=== PATIENT | female | born 1950 | race Caucasian/White ===

== ENCOUNTER 2019-06-30 07:01 | Outpatient (CLI) | payer MEDICARE, OTHER, SELFPAY ==
--- NOTE | 2019-06-30 07:20 | ECG_ITS ---
NAME OF STUDY: LEXISCAN SESTAMIBI STRESS TEST INDICATION: Chest Pain NOTE: Please note that this is the electrocardiogram portion of the Lexiscan/Sestamibi stress test. The perfusion scan will be documented separately. DATA: Baseline heart rate was 55 beats per minute. Baseline blood pressure was 116/66 millimeters of mercury. Target heart rate was 154. Maximum heart rate achieved was 84. which was 54 % of the predicted target heart rate. Maximum blood pressure was 125/66 millimeters of mercury. The reason for ending the test was completion of the protocol. The patient did not experience any symptoms. ELECTROCARDIOGRAM: BASELINE: Sinus bradycardia. Normal axis. Old anterior wall myocardial infarction EXERCISE: After Lexiscan injection, no ST-T changes suggestive of ischemic noted. No arrhythmia noted. CONCLUSION: Please note due to baseline abnormality of the EKG specificity and sensitivity of the EKG portion of LexiScan MIBI stress test will be low 1. EKG not suggestive of ischemia 2. Lexiscan injection unremarkable. 3. Perfusion scan will be documented separately. Electronically Signed On 06-30-2019 18:42:54 DESKTOP ENGINEER by Karl Villalobos M.D. [email or web address]
[2019-06-30 07:28] VITALS: BMI 29.0
--- NOTE | 2019-06-30 07:43 | SUR.PREOP ---
Patient reports no pain or discomfort at this time. Pre procedure.
--- NOTE | 2019-06-30 09:30 | SUR.PREOP ---
Patient reports no pain or discomfort prior to the start of the procedure.
[2019-06-30] MEDS: regadenoson 0.4 Mg/5 ml Syringe IVP (09:32)
[2019-06-30 09:43] VITALS: BP 125/63; PULSE 69
== END 2019-06-30 07:02 | disposition home or self-care (01) ==
LOC: RAD 07:05
PROVIDERS: PCP Family Medicine; Visit Provider Family Medicine
DX: I25.2 Old myocardial infarction (principal); R07.9 Chest pain, unspecified; R00.1 Bradycardia, unspecified
CPT/HCPCS: 78452; 93017; A9500; J2785

== ENCOUNTER 2020-10-22 15:37 | Outpatient (CLI) | payer MEDICARE, OTHER, SELFPAY ==
--- NOTE | 2020-10-22 15:50 | XR_ITS ---
WS: [id number] Exam: XR tibia fibula RT 2V [id number] Date/Time of Exam: 10/22/2020 3:50 PM Reason For Exam: RIGHT LOWER LEG PAIN/INJURY In multiple views, no fractures, soft tissue swelling, or unusual calcifications are noted in or arou nd the tibia and fibula. There is normal bony alignment. No irregularity to the bony architecture i s noted. XR/XR tibia fibula RT 2V [id number] IMPRESSION: Negative tibia and fibula.
== END 2020-10-22 15:38 | disposition home or self-care (01) ==
LOC: RAD 15:44
PROVIDERS: PCP Family Medicine; Visit Provider Nurse Practitioner Family
DX: M79.661 Pain in right lower leg (principal); S89.90XA Unspecified injury of unspecified lower leg, initial encounter; X58.XXXA Exposure to other specified factors, initial encounter
CPT/HCPCS: 73590

== ENCOUNTER 2021-07-24 15:42 | Outpatient (CLI) | payer MEDICARE, OTHER, SELFPAY ==
--- NOTE | 2021-07-24 16:13 | XR_ITS ---
WS: [id number] CHEST 2 VIEWS HISTORY: POST covid 19 CONDITION COMPARISON: None available. Lungs: There are scattered areas of mild increased opacification bilaterally. Consistent with diagnos is of prior Covid. No dense area of consolidation or pneumothorax. Cardiac size: Normal. Mediastinum/Aorta: Mild atherosclerosis aorta. Bones: Thoracolumbar scoliosis. XR/XR chest 2V* [id number] IMPRESSION: 1. Scattered vague opacifications consistent with Covid pneumonitis. 2. No dense consolidation or pneumonia.
== END 2021-07-24 15:43 | disposition home or self-care (01) ==
PROVIDERS: PCP Nurse Practitioner; Visit Provider Nurse Practitioner
DX: U07.1 COVID-19 (principal)
CPT/HCPCS: 71046

== ENCOUNTER 2021-11-14 14:06 | Outpatient (CLI) | payer MEDICARE, OTHER, SELFPAY ==
--- NOTE | 2021-11-14 14:20 | XR_ITS ---
WS: [id number] Left knee, 2 views, 11/14/2021 Clinical Data: PAIN IN R KNEE Comparison: None. Findings: No fractures or dislocations are seen. The joint spaces are normal. The patella is intact. The soft t issues are unremarkable. 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 Kellgren-Mitchell Classification: grade 0 (none): definite absence of x-ray treva nges of osteoarthritis
--- NOTE | 2021-11-14 14:20 | XR_ITS ---
WS: [email or web address] Left foot, 3 views, 11/14/2021 Clinical Data: BILATERAL FOOT PAIN Comparison: None. Findings: No fractures or dislocations are seen. No bone destruction or erosion is noted. The joint spaces and soft tissues are normal. No periarticular demineralization or calcifications are seen. XR/XR foot LT min 3V* [id number] Impression: Negative left foot.
--- NOTE | 2021-11-14 14:20 | XR_ITS ---
WS: [id number] Right foot, 3 views, are described today Clinical Data: BILATERAL FOOT PAIN Comparison: None. Findings: No fractures or dislocations are seen. No bone destruction or erosion is noted. The joint spaces and soft tissues are normal. Periarticular demineralization or calcifications are seen. XR/XR foot RT min 3V* [id number] Impression: Negative right foot.
--- NOTE | 2021-11-14 14:32 | XR_ITS ---
WS: [id number] Right knee, views, 11/14/2021 Clinical Data: PAIN IN R KNEE Comparison: None. Findings: No fractures or dislocations are seen. There is minimal lateral joint compartment narrowing. There is a small spur of the lateral tibial plateau. The patella is intact. The soft tissues are unremarkable . 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 Kellgren-Mitchell Classification: grade 1 (doubtful): doubtful joint space narr owing and possible osteophytic lipping
== END 2021-11-14 14:07 | disposition home or self-care (01) ==
LOC: RAD 14:14
PROVIDERS: PCP Nurse Practitioner; Visit Provider Nurse Practitioner
DX: M79.672 Pain in left foot (principal); M79.671 Pain in right foot; M25.562 Pain in left knee; M25.561 Pain in right knee
CPT/HCPCS: 73560; 73630

== ENCOUNTER 2022-12-25 10:30 | Outpatient (CLI) | payer MEDICARE, OTHER, SELFPAY ==
--- NOTE | 2022-12-25 10:45 | XR_ITS ---
WS: [id number] Exam: XR KUB [id number] Date/Time of Exam: 12/25/2022 10:51 AM Reason For Exam: UPPER LEFT QUADRANT PAIN No bowel obstruction or free air. No sign of organ enlargement. Degenerative change and dextroscolios is of the L-spine. XR/XR KUB [id number] IMPRESSION: 1. No acute abdominal process.
== END 2022-12-25 10:31 | disposition home or self-care (01) ==
LOC: RAD 10:39
PROVIDERS: PCP Nurse Practitioner Family; Visit Provider Nurse Practitioner Family
DX: R10.12 Left upper quadrant pain (principal)
CPT/HCPCS: 74018

== ENCOUNTER 2023-09-14 12:18 | Outpatient (CLI) | payer MEDICARE, OTHER, SELFPAY ==
--- NOTE | 2023-09-14 12:45 | USCV_ITS ---
Feli Moise Age: 73 Gender: F : 1950 Exam Date: 09/14/2023 12:40 Ordering Phys: Sharri Queen NP Technologist: IRMA [place] [facility] [place] HISTORY: Lower extremity edema. PROCEDURES: Venous duplex imaging was performed in bilateral lower extremities. The following venous structures were evaluated: common femoral vein, profunda vein, proximal portion of the greater saphenous vein, superficial femoral vein, and the popliteal vein. In addition, the posterior tibial and peroneal trunk were evaluated. Serial compression, augmentation maneuvers, and spectral Doppler flow evaluation were performed. FINDINGS: Normal 2-D Doppler and augmentation and compressibility throughout the lower extremity venous structures. Additional imaging through the proximal calf veins also reveals no thrombus. Limited evaluation of the greater saphenous vein is patent with no thrombus. CONCLUSIONS No evidence of right lower extremity DVT. No evidence of left lower extremity DVT. Andi Stock MD (Electronically Signed) Final Date: 14 September 2023 16:06 S
== END 2023-09-14 12:19 | disposition home or self-care (01) ==
LOC: RAD 12:21
PROVIDERS: PCP Nurse Practitioner Family; Visit Provider Nurse Practitioner Family
DX: R60.0 Localized edema (principal)
CPT/HCPCS: 93970

== ENCOUNTER 2024-03-31 12:20 | Outpatient (CLI) | payer MEDICARE, OTHER, SELFPAY ==
--- NOTE | 2024-03-31 12:29 | XR_ITS ---
WS: [id number] Exam: XR shoulder LT min 2V* [id number] Date/Time of Exam: 03/31/2024 12:29 PM Reason For Exam: L SHOULDER PAIN No fracture or dislocation. The joints are preserved. Minimal AC joint DJD. Curvilinear calcification over the humeral head suggesting calcific tendinitis or and/or bursitis. XR/XR shoulder LT min 2V* [id number] IMPRESSION: 1. Slight AC joint DJD. 2. Soft tissue calcification suggesting calcific tendinitis and/or bursitis.
== END 2024-03-31 12:21 | disposition home or self-care (01) ==
PROVIDERS: PCP Nurse Practitioner Family; Visit Provider Nurse Practitioner Family
DX: M75.32 Calcific tendinitis of left shoulder (principal)
CPT/HCPCS: 73030

== ENCOUNTER 2025-04-20 09:02 | Outpatient (CLI) | payer MEDICARE, OTHER, SELFPAY ==
--- NOTE | 2025-04-20 09:16 | USCV_ITS ---
Feli Moise Age: 74 Gender: F : 1950 Exam Date: 04/20/2025 09:32 Ordering Phys: Sharri Queen NP Technologist: Exam Location: [facility] – [place] Indication: sob cp BP: 120 / 70 HR: 60 Rhythm: Sinus Technical Quality: Adequate MEASUREMENTS (Male / Female) Normal Values 2D ECHO LV Diastolic Diameter PLAX 4.6 cm 4.2 - 5.9 / 3.9 - 5.3 cm IVS Diastolic Thickness 1.3 cm 0.6 - 1.0 / 0.6 - 0.9 cm IVS Systolic Thickness 1.6 cm LVPW Diastolic Thickness 1.5 cm 0.6 - 1.0 / 0.6 - 0.9 cm LVPW Systolic Thickness 1.5 cm LVOT Diameter 2.0 cm LV Ejection Fraction 2D Teich 57.4 % LV Ejection Fraction MOD 4C 64.8 % LV Ejection Fraction MOD 2C 62.9 % LV Ejection Fraction 2C AL 63.5 % LA Diameter 3.9 cm RA Systolic Volume 4C AL 39.5 ml RA Systolic Volume 4C MOD 37.3 ml LA Sys Volume AL 45.0 cm cubed LA Sys Volume Index AL 22.7 cm cubed/m squared Aorta at Sinotubular Diameter 2.8 cm IVC Diameter 1.6 cm M-MODE LA Ao Ratio MM 1.1 AV Cusp Separation MM 2.4 cm DOPPLER AV Peak Velocity 118.0 cm/s LVOT Peak Velocity 93.0 cm/s AV Area Cont Eq vti 2.8 cm squared AV Area Cont Eq pk 2.5 cm squared MV Peak Velocity 105.0 cm/s MV Area PHT 3.8 cm squared Mitral E to A Ratio 1.0 TV Peak Velocity 255.5 cm/s TR Peak Velocity 273.0 cm/s TR Peak Gradient 29.8 mmHg TV Peak E Velocity 95.0 cm/s PV Peak Velocity 111.0 cm/s FINDINGS Left Ventricle Normal left ventricular size and systolic function, EF 63%.mild left ventricular hypertrophy. No regional wall motion abnormalities. . Grade I/IV diastolic dysfunction (abnormal relaxation filling pattern), normal to mildly elevated filling pressures. Right Ventricle Normal right ventricular size and systolic function. Right Atrium Normal right atrial size. Left Atrium Normal left atrial size. IA Septum Normal appearance of the interatrial septum. Mitral Valve Normal mitral valve structure. No mitral valve stenosis or regurgitation. Aortic Valve Mild aortic valve regurgitation. Tricuspid Valve Mild tricuspid valve regurgitation. Pulmonic Valve Normal pulmonic valve structure. No pulmonic valve stenosis or regurgitation. Pericardium No pericardial effusion. Aorta Normal aortic annulus size. IVC Normal inferior vena cava. CONCLUSIONS Normal left ventricular size, systolic function and wall thickness with ejection fraction of _ %. Normal right ventricular size and systolic function. No significant valvular abnormalities. Mild aortic valve regurgitation. Mild tricuspid valve regurgitation. There is no pericardial effusion. There are no intracardiac masses. No similar previous studies are available for comparison Dr Odell Hernandez MD [facility] (Electronically Signed) Final Date: 22 April 2025 13:45 S
== END 2025-04-20 09:03 | disposition home or self-care (01) ==
LOC: RAD 09:06
PROVIDERS: PCP Nurse Practitioner Family; Visit Provider Nurse Practitioner Family
DX: R06.02 Shortness of breath (principal); I35.1 Nonrheumatic aortic (valve) insufficiency; I36.1 Nonrheumatic tricuspid (valve) insufficiency
CPT/HCPCS: 93306